=== PATIENT | male | born 1960 | race Caucasian/White ===

== ENCOUNTER 2021-12-18 17:54 | Emergency (ER) | payer MEDICAID ==
[~2021-12-18] VITALS: Ht 180.3 cm; Wt 79.4 kg
--- NOTE | 2021-12-18 18:04 | NUR ---
called name in lobby, no answer
[2021-12-18 18:12] VITALS: BP 167/95
--- NOTE | 2021-12-18 18:16 | NUR ---
patient ambulated to bed 2, steady gait
[2021-12-18] MEDS ORDERED: CEPH-588 PO (18:48)
[2021-12-18] MEDS ORDERED: SULF-59 PO (18:48)
[2021-12-18 19:06] VITALS: BP 145/88
--- NOTE | 2021-12-18 19:06 | NUR ---
Patient discharged with v/s stable. Written and verbal after care instructions given and explained. Patient alert, oriented and verbalized understanding of instructions. Ambulatory with steady gait. All questions addressed prior to discharge. ID band removed. Patient advised to follow up with PMD. Rx of KEFLEX AND BACTRIM DS given. Patient educated on indication of medication including possible reaction and side effects. Opportunity to ask questions provided and answered.
== END 2021-12-18 19:03 | disposition home or self-care (01) ==
LOC: MED 17:54
DX: L03.115 Cellulitis of right lower limb (principal); I10 Essential (primary) hypertension; F15.90 Other stimulant use, unspecified, uncomplicated; Z79.899 Other long term (current) drug therapy
CPT/HCPCS: 99283

== ENCOUNTER 2022-12-03 17:57 | Emergency (ER) | payer MEDICAID ==
[~2022-12-03] VITALS: Ht 180.3 cm; Wt 81.2 kg
[~2022-12-03 17:57] MED LIST: CEPH-588 PO; SULF-59 PO
[2022-12-03 18:05] VITALS: BP 168/85
--- NOTE | 2022-12-03 19:53 | NUR ---
PT TO [facility]
[2022-12-03] MEDS ORDERED: ceFAZolin 1,000 MG VIAL IM ONE (19:55)
[2022-12-03] MEDS ORDERED: CEPH-588 PO (20:33)
[2022-12-03] MEDS ORDERED: KETO200T15 PO (20:33)
[2022-12-03 20:38] VITALS: BP 168/85
--- NOTE | 2022-12-03 20:38 | NUR ---
Patient discharged with v/s stable. Written and verbal after care instructions given and explained. Patient alert, oriented and verbalized understanding of instructions. Ambulatory with steady gait. All questions addressed prior to discharge. ID band removed. Patient advised to follow up with PMD. Rx of KEFLEX AND KETOCONAZOLE given. Patient educated on indication of medication including possible reaction and side effects. Opportunity to ask questions provided and answered.
== END 2022-12-03 20:38 | disposition home or self-care (01) ==
LOC: MED 17:57
DX: L03.114 Cellulitis of left upper limb (principal); L30.9 Dermatitis, unspecified; I10 Essential (primary) hypertension; Z79.899 Other long term (current) drug therapy
CPT/HCPCS: 96372; 99283; J0690

== ENCOUNTER 2023-04-27 14:35 | Emergency (ER) | payer MEDICAID ==
[~2023-04-27] VITALS: Ht 185.4 cm; Wt 85.7 kg
[~2023-04-27 14:35] MED LIST changes: +KETO200T15 PO
[2023-04-27 14:48] VITALS: BP 144/74; PULSE 75; RESP 18; TEMP 98; O2SAT 96
[2023-04-27] MEDS ORDERED: KETOROLAC 60 MG/2 ML VIAL IM ONE (15:15)
[2023-04-27] MEDS ORDERED: cefTRIAXone 1,000 MG in LIDOCAINE MPF 1% 2.1 ML IM ONE (15:15)
[2023-04-27 15:16] VITALS: BP 143/85; PULSE 79; RESP 17; TEMP 97.5
[2023-04-27] MEDS ORDERED: cefTRIAXone 1,000 MG VIAL ONE (15:22)
[2023-04-27] MEDS ORDERED: LIDOCAINE MPF 1% 5 ML ONE (15:23)
[2023-04-27] MEDS ORDERED: CEPH-588 PO (15:23)
[2023-04-27] MEDS ORDERED: IBUP-2213 PO (15:23)
== END 2023-04-27 15:44 | disposition home or self-care (01) ==
LOC: MED 14:35
DX: L03.115 Cellulitis of right lower limb (principal); Z79.899 Other long term (current) drug therapy
CPT/HCPCS: 96372; 96374; 99284; J0696; J1885; J2001